=== PATIENT | female | born 1960 | race Caucasian/White ===

== ENCOUNTER 2019-06-02 06:32 | Day surgery (SDC) | payer OTHER ==
[~2019-06-02] VITALS: Ht 177.8 cm; Wt 48.1 kg
[~2019-06-02 06:32] MED LIST: ALLEGRA ALLERG180 MG PO
--- NOTE | 2019-06-02 08:20 | NUR ---
06/02/19 0820 Zayra Justin 0811 PT ARRIVED TO PACU PT AWAKE OFF AND ON. PT REOREITNED TO PACU. VSS. PT ENCOURAGED TO PASS GAS/AIR. 0812 O2 REMOVED. 0815 AT BEDSIDE TALKING TO PT. 0818 PT SITTING IN HIGH FOWLERS AND SIPPING SODA PER REQUEST. PT DENIES PAIN AND NAUSEA.
--- NOTE | 2019-06-02 09:02 | OR ---
[facility] [address], [place] [address] Signed DATE OF OPERATION: 06/02/2019 SURGEON: Rafy Nogueira MD PREOPERATIVE DIAGNOSIS: Screening. POSTOPERATIVE DIAGNOSES: 1. Eyjorzf-qc-zriqcshn sigmoid diverticulosis. 2. Internal hemorrhoids with associated skin tags x2. PROCEDURE: Colonoscopy without biopsy. ESTIMATED BLOOD LOSS: None. INDICATIONS: María is a 59-year-old female, asked to see me for her initial screening colonoscopy. She has no lower GI complaints. There is no family history of colon cancer or polyps. However, she is familiar with bowel preps and colonoscopy because her previous has a long history of Crohn disease. She is also aware of IV conscious sedation. She feels that she is a light weight and wakes up slow from anesthesia. She was also very anxious this morning and so we did give her some Zofran 8 mg IV preop. In the office, I had given her a pamphlet on colonoscopy. We did look at that in detail. She understands the nature of that test along with its risks including, but not limited to gas, bloating, crampy abdominal pain, bleeding, perforation requiring surgery, and missed diagnosis. We also discussed the need for IV conscious sedation. She told me she has been given Versed in the past. She expressed understanding and wished to proceed. PROCEDURE NOTE: María was taken into our endoscopy suite and placed in the left lateral decubitus position. She was given the Zofran 8 mg IV preop for anticipated nausea. She was given a total of 8 mg of Versed and 150 mcg of fentanyl in divided doses over the course of her procedure. She did quite well. At the end of the case, she was actually awake and talking to our staff. A digital rectal exam was performed and this was unremarkable. She has good sphincter tone. She had a small bruise on her right hip, probably 3, maybe 4 cm in diameter. It was an older bruise and was lightening up in color. The adult colonoscope was introduced and advanced all around into the cecum under direct Electronically Signed By: RAFY NOGUEIRA MD 06/02/19 0902 PATIENT NAME: MARÍA POLANCO OPERATIVE REPORT DATE OF : 64 REPORT #: [id number] PHYSICIAN: RAFY NOGUEIRA MD PCP: BEVERLEY SALDIVAR MD REPORT IS CONFIDENTIAL AND NOT TO BE RELEASED WITHOUT AUTHORIZATION [facility] [address], [place] [address] Signed visualization of the camera. It took a little extra sedation and some abdominal compression in order to advance the scope. Her prep was quite good. We could easily see the appendiceal orifice and the ileocecal valve. The scope was slowly withdrawn. She has diverticula in the sigmoid colon. They were woejzii-xl-ttdtgodh in size, egcdmex-wq-voldavus in number, and scattered about. The rectum was unremarkable. There were no polyps. Upon retroflexion of the scope, she has two jxkkauk-rc-netxacvi internal hemorrhoids with associated skin tags. After this, the gas was suctioned out and the colonoscope removed. María tolerated the procedure quite well. RECOMMENDATIONS: María is welcome to follow up in 10 years for repeat colonoscopy. Rafy Nogueira MD ALB/MODL /[id number] cc: MD Beverley Jessica MD Copies: RAFY NOGUEIRA MD, PATRICIA J MD ~ Electronically Signed By: RAFY NOGUEIRA MD 06/02/19 0902 PATIENT NAME: MARÍA POLANCO Jose Alfredo OPERATIVE REPORT DATE OF : 64 REPORT #: [id number] PHYSICIAN: RAFY NOGUEIRA MD PCP: BEVERLEY SALDIVAR MD REPORT IS CONFIDENTIAL AND NOT TO BE RELEASED WITHOUT AUTHORIZATION
== END 2019-06-02 08:40 | disposition home or self-care (01) ==
LOC: OPS 06:32 → DS 06:32 → OPS 06:45 → DS 06:45 → OPS 08:40
PROVIDERS: Colon & Rectal Surgery
PROC: 0DJD8ZZ Inspection of Lower Intestinal Tract, Via Natural or Artificial Opening Endoscopic (ICD-10-PCS; principal; 2019-06-02 06:45)
DX: Z12.11 Encounter for screening for malignant neoplasm of colon (principal); K57.30 Diverticulosis of large intestine without perforation or abscess without bleeding; K64.8 Other hemorrhoids; K64.4 Residual hemorrhoidal skin tags; F41.9 Anxiety disorder, unspecified; Z88.8 Allergy status to other drugs, medicaments and biological substances; Z79.899 Other long term (current) drug therapy
CPT/HCPCS: 99153; G0500; J2250; J2405; J3010; J7121